=== PATIENT | female | born 1940 | race Caucasian/White ===

== ENCOUNTER 2016-12-04 06:40 | Inpatient (IN) | payer MEDICARE, OTHER ==
--- NOTE | 2016-11-28 16:35 | HP ---
PREOPERATIVE HISTORY AND PHYSICAL: DATE OF OFFICE VISIT: 11/28/16 DATE OF SURGERY: 12/04/16. ATTENDING SURGEON: Oral Redman MD. (DICTATED BY NORMA COLEY) PROCEDURE: Right total knee replacement. CHIEF COMPLAINT: Right knee pain. HISTORY OF PRESENT ILLNESS: Ms. Nickerson is a 76-year-old female who presents to the clinic with ongoing right knee pain for several months. She does have a history of a left total knee arthroplasty which is doing well. She states that her right knee pain has been limiting her function. She is able to walk less than 1 block. She has failed conservative measures to include anti- inflammatories and injections and therefore, has agreed to undergo a right total knee replacement with Dr. Redman on 12/04/16. PAST MEDICAL HISTORY: 1. Rheumatoid arthritis. 2. Low back pain. 3. Heart disease with presence of a pacemaker. 4. Prolapsed bladder. 5. Hypertension. Patient denies prior history of heart attack. PAST SURGICAL HISTORY: 1. Left knee arthroscopy. 2. Left total knee replacement. 3. Umbilical hernia repair. 4. Prolapsed bladder surgery. 5. Pacemaker placement 11/08/14. Patient denies prior complication with anesthesia. MEDICATIONS: 1. Voltaren 1% apply 4g to the left shoulder twice a day as needed. 2. Methotrexate 2.5 mg to take 6 tablets by mouth once a week. 3. Diclofenac 75 mg 1 by mouth twice a day as needed. 4. Simponi 50 mg/0.5 mL injection 50 mg under the skin every month. 5. Folic acid 1 mg take 1 tablet daily. 6. Multivitamin 1 by mouth daily. 7. Vitamin D 500 mg 1 by mouth daily. 8. Ibuprofen 200 mg as needed. 9. Zinc 50 mg every day. 10. Stool softener 100 mg 1 by mouth once a day. 11. Amlodipine besylate 5 mg 1 by mouth every day in the morning. 12. Losartan potassium 25 mg 1 tablet daily. ALLERGIES: No known drug allergies. FAMILY HISTORY: Positive for cancer. Denies family history or personal history of DVT or PE. SOCIAL HISTORY: Patient is retired, she lives alone. She denies tobacco use. She reports occasional alcohol consumption. She denies illegal drug use. REVIEW OF SYSTEMS: General: Negative for fevers, chills, night sweats. No known anesthesia problems. HEENT: Negative for headache, lightheadedness or syncopal episodes. Integumentary: Negative for abrasions, lesions, or open wounds. Cardiothoracic: Negative for chest pain, palpitations or edema. Positive for hypertension. Positive for presence of a pacemaker. Pulmonary: Negative for shortness of breath with exertion, chronic cough, or COPD. GI: Negative for nausea, vomiting, diarrhea, constipation, or GERD. : Negative for nocturia, urinary frequency, urinary urgency, history of UTIs, or kidney problems. Musculoskeletal: Positive for the current complaint. Neuro: Negative for numbness and tingling, history of seizure, stroke, epilepsy. Endocrine: Negative for diabetes or thyroid issues. Hematology: Negative for easy bruising, history of bleeding disorder or history of DVT or PE. Infectious Disease: Negative for history of MRSA, hep C or HIV. PHYSICAL EXAMINATION GENERAL: A 76-year-old well-developed, well-nourished female in no acute distress. Alert and oriented x3 with appropriate mood and affect. VITAL SIGNS: Height 60.25, weight 145, pulse 70, blood pressure 164/70, temperature 97.3, BMI 28.1. HEENT: Normocephalic, atraumatic. PERRLA. NECK: Supple. Throat clear. PULMONARY: Lungs clear to auscultation bilaterally. No wheezing, rhonchi or rales. CARDIO: Regular rate and rhythm, S1 and S2. No murmurs, gallops or rubs. No edema. No carotid bruits. ABDOMEN: Positive bowel sounds, soft, nontender. NEUROLOGIC: Alert and oriented x3. Cranial nerves are grossly intact. Sensation is intact to light touch. MUSCULOSKELETAL: Right lower extremity: Antalgic gait favoring the right side. Neutral right knee alignment. Extension to 0 degrees, flexion 105, no effusion. Stable MCL and LCL. Tender over the medial and lateral joint line. Calf itself is nontender. No swelling of the legs, ankles, or feet bilaterally. +2 posterior tibialis and dorsalis pedis pulses. Sensation intact to light distally. DIAGNOSTIC STUDIES: Multi-view x-rays of the right knee reveal severe arthritic changes in the lateral compartment with [id number] sclerosis and osteophyte formation. IMPRESSION: Severe osteoarthritis of the right knee. PLAN: Patient is a scheduled to undergo a right total knee replacement with Dr. Redman on 12/04/16. She has been cleared by her primary care physician and her corporate tax manager. She is currently holding her Simponi and we will hold her methotrexate 2 weeks before and after the surgery. The patient is holding her vitamin C one week prior to surgery per her PCP. She will also hold her diclofenac one week prior to surgery. She will return to the office 1 month postop for followup and x-rays. Percocet was e-prescribed to the patient's pharmacy for postop pain management. She was instructed to begin an over-the- counter stool softener for opiate-induced constipation prevention and she will take aspirin 325 mg daily for DVT prophylaxis postoperatively. NORMA COLEY [id number]/CPS #: [id number] MTDD
[~2016-12-04 06:40] MED LIST: Buffered Lidocaine 0.9% SYRIN* 5 ML/SYR SYRINGE INTRADERM ONE; Buffered Lidocaine 0.9% SYRIN* 5 ML/SYR SYRINGE ONE; Famotidine IV* 10 MG/ML 2 ML (20 mg) IV ONE; Famotidine IV* 10 MG/ML 2 ML (20 mg) ONE; Metoclopramide TAB* 10 MG ONE; Metoclopramide TAB* 10 MG PO ONE; ceFAZolin 2 GM PREMIX(*) 2 GM/50 ML BAG IVPB ONE
[2016-12-04] MEDS ORDERED: Bupivacaine 0.5% SDV PF* 30 ML VIAL ONE (07:09)
[2016-12-04] MEDS ORDERED: Propofol* 10 MG/ML 20 ML BTL IV PUSH ONE (07:09)
[2016-12-04] MEDS ORDERED: Ketorolac INJ* 30 MG/ML 1 ML VIAL ONE (07:09)
[2016-12-04] MEDS ORDERED: Bupivacaine 0.5% W/EPI SDV* 10 ML VIAL INJ ONE (07:09)
[2016-12-04] MEDS ORDERED: Ondansetron INJ* 2 MG/ML VIAL ONE (07:09)
[2016-12-04] MEDS ORDERED: Propofol* 500 MG/50 ML BTL ONE (07:09)
[2016-12-04] MEDS ORDERED: Lidocaine 2% PF * 5 ML VIAL ONE (07:09)
[2016-12-04] MEDS ORDERED: Dexamethasone IV* 4 MG/ML 1 ML (4 MG) ONE (07:09)
[2016-12-04] MEDS ORDERED: KETAMINE HCL* 50 MG/ML 10 ML VIAL ONE (07:10)
[2016-12-04] MEDS ORDERED: fentaNYL* 50 MCG/ML 2 ML VIAL (100 MCG VIAL) ONE ×2 (07:10→11:03)
[2016-12-04] MEDS ORDERED: Midazolam* 1 MG/ML 5 ML VIAL (5 MG) ONE (07:10)
[2016-12-04] MEDS ORDERED: Morphine PF AMP (0.5MG/ML)* 5 MG/10 ML AMP ONE (07:10)
[2016-12-04] MEDS ORDERED: EPHEDrine (Pressors)* 50 MG/ML VIAL ONE (08:00)
[2016-12-04] MEDS ORDERED: Phenylephrine INJ* 10 MG/ML 1 ML VIAL (10 MG) ONE (08:12)
[2016-12-04] MEDS ORDERED: fentaNYL* 50 MCG/ML 2 ML VIAL (100 MCG VIAL) IV PRN (09:02)
[2016-12-04] MEDS ORDERED: DiMENhydriNATE IV* 50 MG/ML VIAL IV PUSH PRN (09:02)
[2016-12-04] MEDS ORDERED: Ondansetron INJ* 2 MG/ML VIAL IV PRN ×3 (09:02→10:25)
[2016-12-04] MEDS ORDERED: oxyCODONE/Acetamin 5/325 MG* TAB PO PRN ×3 (09:04→10:25)
[2016-12-04] MEDS ORDERED: diPHENhydraMINE IV* 50 MG/ML 1 ml VIAL (BENADRYL) IV PRN ×2 (09:04→10:25)
[2016-12-04] MEDS ORDERED: EPHEDrine (Pressors)* 50 MG/ML VIAL IV PUSH PRN (09:04)
[2016-12-04] MEDS ORDERED: Lactated Ringers 500 ml BAG* 500 ML IV PRN (09:04)
[2016-12-04] MEDS ORDERED: Naloxone* 0.4 MG/ML 1 ML VIAL IV PRN (09:09)
[2016-12-04] MEDS ORDERED: Ropivacaine* 300 MG in NS 0.9% 250 ML* 240 ML EPIDURAL SCH (10:00)
[2016-12-04] MEDS ORDERED: Ondansetron TAB* 4 MG PO PRN (10:25)
[2016-12-04] MEDS ORDERED: Acetaminophen TAB* 325 MG PO PRN (10:25)
--- NOTE | 2016-12-04 11:15 | RAD ---
Indication: Immediate postop exam following RIGHT total knee replacement. Comparison: October 03, 2016 Technique: Portable AP and cross table lateral views RIGHT knee. Report: Status post total knee replacement. Anterior cutaneous queenie and surgical drain in place. Post-op fluid and gas is seen in the joint space and anterior subcutaneous tissues. Alignment is anatomic. No periprosthetic fracture evident. IMPRESSION: Unremarkable immediate postoperative appearance following RIGHT knee replacement.
--- NOTE | 2016-12-04 13:18 | OP ---
CC: Dr. Johnson, [place]reg[place]Torrey manriquez OPERATIVE REPORT: DATE OF OPERATION: 12/04/16 DATE OF : 40 SURGICAL CARE: Right knee. SURGEON: Oral Redman MD ASSISTANTS: 1. Oriana Syed, budget assistant. 2. aimee Landers tech. ANESTHESIOLOGIST: Dr. Sam Myles. ANESTHESIA: Spinal, Duramorph, epidural, IV sedation. PRE-OP DIAGNOSIS: Severe arthritis of the right knee. POST-OP DIAGNOSIS: Severe arthritis of the right knee. OPERATIVE PROCEDURE: Right total knee replacement. COMPONENTS UTILIZED: Valerie Persona knee size 6 femur, D tibia, a 32 patella, and a 10 articular moseley rface. A small extension was placed on the tibial component. COMPLICATIONS: There were no complications. DRAINS: Two blood collection drains, right knee at the end of the case. BLOOD LOSS: 150 mL. REPLACEMENT: Crystalloid fluids. OPERATIVE INDICATIONS: Severe knee arthritis that has been no longer responsive to nonoperative car e. The patient had a left total knee replacement in 2003. DESCRIPTION OF PROCEDURE: The patient was brought to the operating room and placed on the operating table in a supine position following the administration of the anesthetic in the sitting position, she was returned to the supine position and a Hampton catheter was inserted. The right leg was noted to have a 2+ dorsalis pedis pulse and the right proximal thigh was wrapped with a tourniquet. The r ight leg was then given a preliminary chlorhexidine prep and then a final ChloraPrep and draping and sealing off was completed. We did our universal protocol time-out confirming Augusta Nickerson and [facility] [facility] for right total knee replacement. We all agreed and we proceeded. Surgical care was done wi thout tourniquet except for the cleanup and cementing phase of the case. The knee was kept in acute flexion with right foot on a padded foot piece for most of the surgical care. The skin incision we nt from two fingerbreadths proximal to the superior pole of the patella to the medial aspect of the tibial tubercle. Careful hemostasis was checked and achieved throughout the case utilizing electroc autery. The skin and subcu were divided down to the prepatellar bursa and then a careful medial par apatellar arthrotomy was completed, dividing the soft tissues on the tibia down to the bone just med ial to the tibial tubercle going up to the joint line and then the medial aspect of the patella and dividing the quad tendon at the junction of the rectus femoris and the vastus medialis tendon going 3 to 4 cm proximal to superior pole of the patella, staying as close to the vastus medialis muscle a s possible. The knee had very slightly cloudy synovial fluid and there is also clear synovial fluid . The knee had some synovitis. There was complete eburnation of bone, lateral femoral condyle, lat eral tibial plateau with osteophytes, osteophytes on the medial tibial plateau, osteophytes intercon dylar and patella. The anteromedial soft tissues on the tibia were elevated subperiosteally going a round the deep MCL and then in the posteromedial corner of the knee. The patella was everted. Para patellar synovectomy was completed. The ACL and PCL were carefully uplifted from their femoral orig ins after removal of osteophytes on the intercondylar notch, and the tibia was made so that it could be subluxated for from under the femur. Careful lateral meniscectomy was completed taking care to cauterize in the region of the lateral geniculate. The distal anterior femur was exposed subperiost eally for referencing and measuring. The proximal tibial cut was made first. Our goal here was to remove 1 mm or 2 of bone from the lateral side and 5 to 6 mm from the medial side. I wanted the tib ial surface that would have a slight posterior slope and be perpendicular to the long access of the tibia. After this cut was completed and the femoral intramedullary drill was utilized, the femoral canal was suctioned to discourage embolization, and the distal femoral cutting guide was applied on 1 because there was very slight flexion contracture and 6 degrees of valgus. The distal femoral cut s were completed and the extension gap was very satisfactory 10 mm after this cut. The femur was me asured for a size 6 and the 5:1 cuts were completed. We then finished removal of the posterior horn lateral meniscus, the PCL, posterior horn medial meniscus, osteophytes on the posteromedial femoral condyle and at this stage, we had nice ligamentous balance and 90 degrees of flexion with a 10 mm b lock and in full extension with 10 mm block. The femur was completed with intercondylar cutout. Th e tibia was completed for a size D and the femoral canal was then cleaned x6 with pulse saline sucti oned empty and bone plug inserted. The knee was then articulated and extended with D tibia 10 artic ular surface and the 6 femur and we had full knee extension, nice alignment in extension with stable ligaments in extension, and nice ligamentous balance in 90 degrees of flexion. The patella was cut flat. A 32 was chosen. Three drill holes were made and these were undercut. At this stage, the f inal components were checked and opened. The leg was exsanguinated with a David tourniquet. The t ourniquet elevated to 275. The knee was cleaned up entirely in extension with pulse saline irrigati on in all aspects of the gutters posteriorly. The knee was then cleaned in flexion. All bony surfa onel were again cleaned with pulse saline. All surfaces were dried. The cement was mixed. The comp onents were cemented into position, patella followed by tibia, followed by femur. Each was impacted . Excess cement was removed and the knee was articulated and extended during the final hardening. The tourniquet was then deflated. The pericapsular soft tissues were infiltrated with Marcaine 0.5% with epinephrine posteromedially and medially and after we irrigated several times during closure w ith pulse saline. Two drains were brought out through superolateral suprapatellar pouch. The quad mechanism closed with interrupted #1 Polysorbs in [id number] fashion, the same with the medial retinaculum and distally I used 0 Polysorb. The deep bursa, subcu closed with interrupted 0 Polysor b and then 3-0 Polysorb on the more superficial tissues in the superficial subcu and queenie on the skin. The drains were carefully dressed. The surgery was washed with saline and carefully dried an d covered with Betadine soaked release, sterile gauze, sterile Webril, Cryotherapy cuff, ABD pads, a nd then a 6- inch Mark bandage loosely applied. The knee was flexed several times during closure, well past 120 degrees and fully extended and ligam ents were all stable. At the end of the case, the posterior tibial pulse was 2+, and the patient wa s returned to the hospital bed in the recovery room in stable and satisfactory condition having susy rated the procedure very well. [id number]/[facility] #: [id number]
[2016-12-04] MEDS: ceFAZolin VIAL(*) 1 GM in D5W 50 ML BAG* 50 ML IVPB SCH ×2 (16:06→23:29)
[2016-12-04] MEDS: Magnesium Hydroxide LIQ* 30 ML UDC PO PRN (21:02)
[2016-12-04] MEDS: Docusate CAP* 100 MG PO SCH (21:02)
[2016-12-05] MEDS: oxyCODONE/Acetamin 5/325 MG* TAB PO PRN ×3 (03:42→14:49)
[2016-12-05 05:23] LABS: Hematocrit 30 % (35-47)
[2016-12-05 05:49] LABS: BUN/Creatinine Ratio 21.7 (8-20); Blood Urea Nitrogen 13 mg/dL (6-24); CO2 Carbon Dioxide 22 mmol/L (22-32); Calcium 8.6 mg/dL (8.6-10.3); Chloride 102 mmol/L (101-111); EGFR Non-African American 97.2 (>60); Glucose 104 mg/dL (70-100); Sodium 129 mmol/L (133-145)
[2016-12-05 05:51] LABS: Anion Gap 5 mmol/L (2-11)
[2016-12-05] MEDS: oxyCODONE TAB* 5 MG TAB PO PRN ×4 (06:02→22:33)
[2016-12-05] MEDS ORDERED: KCL 20 MEQ/100 ML IVPREMIX* 20 MEQ/100 ML BAG IV ONE (07:41)
[2016-12-05] MEDS: ceFAZolin VIAL(*) 1 GM in D5W 50 ML BAG* 50 ML IVPB SCH (07:50)
[2016-12-05] MEDS ORDERED: Potassium Chlor TAB* 20 MEQ TAB.ER PO ONE (08:00)
[2016-12-05] MEDS: Aspirin TAB* 325 MG PO SCH (08:54)
[2016-12-05] MEDS: Docusate CAP* 100 MG PO SCH ×2 (08:54→20:18)
[2016-12-05] MEDS: amLODIPine TAB* 5 MG PO SCH (08:54)
[2016-12-05] MEDS: Losartan TAB* 25 MG PO SCH (08:54)
[2016-12-05] MEDS: Potassium Chlor TAB* 20 MEQ TAB.ER PO SCH ×2 (12:07→17:47)
--- NOTE | 2016-12-05 13:50 | CONS ---
CC: Dr. Johnson; Ms. Alejandro Casey; Dr. Quinn; Dr. Redman. * CONSULTATION REPORT: DATE OF CONSULT: 12/04/16. PRIMARY CARE PROVIDER: Dr. Johnson. REQUESTING PHYSICIAN: The consultation was requested by Dr. Redman in regards to patient's co-management of her chronic medical problems as well as current postoperative development of hyponatremia and hypokalemia. CHIEF COMPLAINT: Right knee pain. HISTORY OF PRESENT ILLNESS: Augusta Nickerson is a 76-year-old female with history of rheumatoid arthritis with history of remote left knee replacement surgery, and on 12/04/16 she underwent right knee replacement surgery by Dr. Redman. Postoperatively, she had been doing very well. It was noted incidentally that her sodium postoperatively was 129 and potassium of 2.7. She had been getting intravenous fluids with lactated Ringers postop. The patient herself feels well. She is awaiting physical therapy now and eating breakfast comfortably with minimal postoperative pain. She is planning to go to stay with her son in [place], under the care of her granddaughter after her discharge. PAST MEDICAL HISTORY: 1. Rheumatoid arthritis under the care of Dr. Casey. 2. History of symptomatic 2:1 heart block status post pacemaker placement in 2014 under the care of Dr. Quinn. 3. Hypertension. 4. History of bladder prolapse. 5. History of left knee replacement surgery in remote past. 6. History of right knee replacement surgery yesterday. 7. History of hysterectomy. 8. History of hernia repair. MEDICATIONS AT HOME: Include: 1. Voltaren 1% topical to the left shoulder twice a day as needed. 2. Methotrexate 2.5 mg, the patient takes 6 tablets once a week on . 3. Diclofenac 75 mg twice a day as needed. 4. Simponi, the patient uses subcutaneous injections every month, but she had missed for the past couple of months. 5. Folic acid 1 mg daily. 6. Multivitamin 1 tablet daily. 7. Vitamin D 500 mg daily. 8. Ibuprofen on a p.r.n. basis. 9. Zinc 50 mg every day. 10. Stool softener on a p.r.n. basis. 11. Amlodipine 5 mg daily. 12. Losartan 25 mg daily. ALLERGIES: No known drug allergies. FAMILY HISTORY: Positive for breast cancer in sister and mother and prostate cancer in father. SOCIAL HISTORY: The patient is retired, lives alone. There is no history of alcohol, tobacco, or drug use. Once again, she is going to stay with her son in [place] postoperatively. Her surrogate is her son, Joesph Nickerson from [place]. REVIEW OF SYSTEMS: Please see history of present illness. The patient had stated that her rheumatoid arthritis symptoms have been rather well controlled with the current medications apart from the right knee problems that she just had operated on. There is no history of recent chest pain or shortness of breath. Her exercise tolerance is fair. The patient currently has a Hampton catheter in place, which will be discontinued shortly. All the remaining 14 systems were reviewed with the patient and were otherwise negative. PHYSICAL EXAM: Blood pressure of 134/48, heart rate of 57 and regular, respiratory rate 17, oxygen saturation 96% on room air, temperature 97.7. General: The patient is a very pleasant 76-year-old female, who is in no acute distress. Alert, awake, and oriented x3. HEENT: Head atraumatic, normocephalic. Eyes: Pupils equal and reactive to light and accommodation. Oropharynx clear. Mucosa moist. Neck: Supple. No JVD. No bruits bilaterally. Cardiovascular: Regular rate and rhythm with 2/6 systolic ejection murmur on auscultation of the right upper sternal border. Respiratory : Clear to auscultation bilaterally. Abdomen: Soft and nontender. Bowel sounds present in all 4 quadrats. Extremities: There is no edema. Pulses are +2 bilaterally. There is no clubbing or cyanosis. The right postoperative knee is wrapped in postop bandages and the postoperative dressing was not removed for evaluation today. Neuro evaluation: Speech clear. Cranial nerves II through XII grossly intact. Motor strength is 5/5 bilaterally. LABORATORY DATA: Shows sodium of 129, potassium of 2.7, chloride 102, carbon dioxide 22, BUN 13, creatinine 0.6. The patient's hemoglobin was 10.0, hematocrit of 30. The patient's intake total was over 6000 mL in the past 24 hours and output 3800 with balance of 2900 mL positive. ASSESSMENT AND PLAN: 1. A 76-year-old female status post right knee replacement surgery, now with hyponatremia and hypokalemia. It appears to be purely dilutional in postoperative period. The patient has received over 6 L of IV fluids and she is almost 3 L positive. At this point, the patient is found to be Hep-Lock'd when she is eating breakfast, which is right now. Dr. Redman already scheduled patient for potassium replacement 3 times a day of 20 mEq p.o. In addition to that, I will order 1 dose of 20 mEq of potassium chloride IV. 2. In regards to her rheumatoid arthritis, patient's methotrexate and Simponi is on hold while patient is in postoperative state. Patient is ordered postoperative opiate pain medications, oxycodone with acetaminophen on a p.r.n. basis. 3. In regards to patient's hypertension, which is well controlled, amlodipine and losartan can be continued. 4. For DVT prophylaxis, as per patient's primary service, patient is currently on aspirin only. I will defer the patient to Dr. Redman for further DVT prophylaxis management. 5. Patient's anemia with hemoglobin of 10 is new postoperative and at least partially dilutional. That will be followed with a CBC in the morning. 6. Patient's code status is full and her surrogate is her son, Joesph. TIME SPENT: Approximately 62 minutes was spent on consultation of this patient , more than half the time was spent [id number] with patient doing the interview and physical exam. Thank you very much for allowing me to see your patient in consultation. We will see the patient on a daily basis. [id number]/CPS #: [id number] MTDD
[2016-12-05] MEDS: Morphine INJ* 2 MG/ML 1 ML SYRINGE IV PRN ×2 (21:04→23:38)
[2016-12-06] MEDS: oxyCODONE TAB* 5 MG TAB PO PRN ×4 (03:40→22:03)
[2016-12-06 05:50] LABS: Hematocrit 31 % (35-47); Hemoglobin 10.4 g/dl (12.0-16.0)
[2016-12-06] MEDS: oxyCODONE/Acetamin 5/325 MG* TAB PO PRN ×3 (08:03→18:36)
[2016-12-06] MEDS ORDERED: Potassium Chlor TAB* 10 MEQ TAB.ER PO SCH (09:00)
[2016-12-06 09:10] LABS: BUN/Creatinine Ratio 25.5 (8-20); Calcium 8.5 mg/dL (8.6-10.3); EGFR African American 150.8 (>60); EGFR Non-African American 117.2 (>60); Potassium 4.2 mmol/L (3.5-5.0)
[2016-12-06] MEDS: Losartan TAB* 25 MG PO SCH (09:30)
[2016-12-06] MEDS: Aspirin TAB* 325 MG PO SCH (09:30)
[2016-12-06] MEDS: amLODIPine TAB* 5 MG PO SCH (09:30)
[2016-12-06] MEDS: Docusate CAP* 100 MG PO SCH ×2 (09:30→22:03)
[2016-12-06] MEDS: Magnesium Hydroxide LIQ* 30 ML UDC PO PRN (09:34)
--- NOTE | 2016-12-06 09:47 | PN ---
Subjective Date of Service: 12/06/16 Interval History: Pt feels well. Post op was not well controlled last night, today feels better. Objective Active Medications: Acetaminophen (Tylenol Tab*) 650 mg PO Q4H PRN PRN Reason: PAIN OR TEMPERATURE Amlodipine Besylate (Norvasc Tab*) 5 mg PO QAM [facility] Last Admin: 12/06/16 09:30 Dose: 5 mg Aspirin (Aspirin Tab*) 325 mg PO DAILY [facility] Last Admin: 12/06/16 09:30 Dose: 325 mg Diphenhydramine HCl (Benadryl Iv*) 12.5 mg IV Q6H PRN PRN Reason: PRURITIS Docusate Sodium (Colace Cap*) 100 mg PO BID [facility] Last Admin: 12/06/16 09:30 Dose: 100 mg Losartan Potassium (Cozaar Tab*) 25 mg PO QAM [facility] Last Admin: 12/06/16 09:30 Dose: 25 mg Magnesium Hydroxide (Milk Of Magnesia Liq*) 30 ml PO Q6H PRN PRN Reason: constipation Last Admin: 12/06/16 09:34 Dose: 30 ml Morphine Sulfate (Morphine Inj (Syringe)*) 2 mg IV Q2H PRN PRN Reason: PAIN Last Admin: 12/05/16 23:38 Dose: 2 mg Ondansetron HCl (Zofran Inj*) 4 mg IV Q6H PRN PRN Reason: nausea Last Admin: 12/05/16 21:04 Dose: 4 mg Ondansetron HCl (Zofran Tab*) 4 mg PO Q6H PRN PRN Reason: NAUSEA Oxycodone HCl (Roxycodone Tab*) 10 mg PO Q4H PRN PRN Reason: SEVERE PAIN Last Admin: 12/06/16 09:30 Dose: 10 mg Oxycodone/Acetaminophen (Percocet 5/325 Tab*) 1 tab PO Q3H PRN PRN Reason: PAIN - MODERATE Oxycodone/Acetaminophen (Percocet 5/325 Tab*) 2 tab PO Q3H PRN PRN Reason: PAIN - MODERATE Last Admin: 12/06/16 08:03 Dose: 2 tab Potassium Chloride (Klor Con Er Tab*) 10 meq PO TID [facility] Last Admin: 12/06/16 09:30 Dose: 10 meq Vital Signs 12/05/16 12/05/1617 09:49 11:22 11:27 Temperature 97.5 F Pulse Rate 61 Respiratory 18 16 16 Rate Blood Pressure 127/46 (mmHg) O2 Sat by Pulse 97 Oximetry 12/05/16 12/05/16 12/05/16 11:28 13:27 14:49 Temperature Pulse Rate Respiratory 16 18 18 Rate Blood Pressure (mmHg) O2 Sat by Pulse Oximetry 12/05/16 12/05/16 12/05/16 15:50 15:54 16:00 Temperature 98.1 F Pulse Rate 63 Respiratory 18 Rate Blood Pressure 115/45 (mmHg) O2 Sat by Pulse 96 96 Oximetry 12/05/16 12/05/16 12/05/16 16:49 17:47 19:15 Temperature 98.5 F Pulse Rate 61 Respiratory 18 18 16 Rate Blood Pressure 136/46 (mmHg) O2 Sat by Pulse 94 Oximetry 12/05/16 12/05/16 12/05/16 19:20 19:23 19:47 Temperature Pulse Rate Respiratory 16 16 16 Rate Blood Pressure (mmHg) O2 Sat by Pulse Oximetry 12/05/16 12/05/16 12/05/16 21:04 22:04 22:33 Temperature Pulse Rate Respiratory 20 20 20 Rate Blood Pressure (mmHg) O2 Sat by Pulse Oximetry 12/05/16 12/05/16 12/06/16 23:33 23:38 00:33 Temperature 99.6 F Pulse Rate 74 Respiratory 16 16 16 Rate Blood Pressure 158/58 (mmHg) O2 Sat by Pulse 95 Oximetry 12/06/16 12/06/16 12/06/16 00:37 00:40 03:39 Temperature 99.6 F Pulse Rate 73 Respiratory 16 18 Rate Blood Pressure 152/57 (mmHg) O2 Sat by Pulse 95 97 Oximetry 12/06/16 12/06/16 12/06/16 03:40 05:40 08:00 Temperature Pulse Rate Respiratory 16 16 20 Rate Blood Pressure (mmHg) O2 Sat by Pulse 94 Oximetry 12/06/16 12/06/16 12/06/16 08:03 08:05 09:30 Temperature 97.6 F Pulse Rate 72 Respiratory 18 20 18 Rate Blood Pressure 156/61 (mmHg) O2 Sat by Pulse 94 Oximetry Oxygen Devices in Use Now: None Appearance: 76 yo F in nAd, AAOx3 Eyes: No Scleral Icterus, PERRLA Ears/Nose/Mouth/Throat: NL Teeth, Lips, Gums, Mucous Membranes Moist Neck: NL Appearance and Movements; NL JVP, Trachea Midline Respiratory: Symmetrical Chest Expansion and Respiratory Effort, Clear to Auscultation Cardiovascular: NL Sounds; No Murmurs; No JVD, RRR Abdominal: NL Sounds; No Tenderness; No Distention Lymphatic: No Cervical Adenopathy Extremities: No Clubbing, Cyanosis, - - trace r leg edema, r knee post op dressing not removed Skin: No Nodules or Sclerosis Neurological: Alert and Oriented x 3, NL Muscle Strength and Tone Result Diagrams: 12/06/16 05:35 12/06/16 05:35 Microbiology and Other Data: Microbiology 12/05/16 07:58 Urine Culture - Final Urine No Growth (<1,000 CFU/mL) Assess/Plan/Problems-Billing Assessment: 76 yo F with h/o RA and HTN s/p R TKR on 12/04/16 - Patient Problems (1) Knee joint replacement status Comment: s/p surgery on 12/04/16 doing well Possible d/c home tomorrow (2) Hyponatremia Comment: Na still worsening today. IVF stopped on 12/05/16 Multifactorial: dilution/pain/narcotics. Monitor, off IVF Repeat BMP in AM (3) Hypokalemia Comment: resolved (4) Hypertension Comment: controlled, cont Norvasc and Losartan (5) Rheumatoid arthritis Comment: Stable Patient on MTX to resume after discharge (6) DVT prophylaxis Comment: heparin sc (7) Postoperative anemia due to acute blood loss Comment: Hb stable, at an acceptable range Status and Disposition: medicine consult, will follow daily
--- NOTE | 2016-12-06 09:55 | PN ---
Progress Note - Progress Note Date of Service: 12/06/16 SOAP: Subjective: []Patient seen walking from BR to chair upon entering room this morning. She states she did not sleep well last night due to knee pain and feels tired this am. She denies SOB, CP or dizziness. She feels her pain is a little better this am. She hopes to go home to her son's house tomorrow. Objective: [] Laboratory Results - last 24 hr 12/06/16 12/06/16 05:35 05:35 Hgb 10.4 L Hct 31 L Sodium 124 L Potassium 4.2 Chloride 93 L Carbon Dioxide 26 Anion Gap 5 BUN 13 Creatinine 0.51 Est GFR ( Amer) 150.8 Est GFR (Non-Af Amer) 117.2 BUN/Creatinine Ratio 25.5 H Glucose 110 H Calcium 8.5 L Vital Signs Temp 97.6 F 12/06/16 08:05 Pulse 72 12/06/16 08:05 Resp 18 12/06/16 09:30 BP 156/61 12/06/16 08:05 Pulse Ox 94 12/06/16 08:05 Intake & Output 12/05/16 12/06/16 12/06/16 18:59 06:59 18:59 Intake Total 2147 1040 330 Output Total 1250 1900 200 Balance 897 -860 130 Intake: IV Fluids 1187 LR 1167 NS (0.9%) 20 Medicated IV 165 Cerfazolin 55 potassium 110 Oral 795 1040 330 Output: Urine 900 1900 200 [place] 350 Right knee dressings changed, soapy water wash done, betadine soaked telfa, 4x4s and ABD w LATOYA re applied Wound healing well, no erythema or active drainage calf non tender and soft + DF/PF right ankle Assessment: []s/p Right total knee arthroplasty POD #2 hypokalemia- resolved hyponatremia- active, per Dr. Haley, continue to monitor labs for natural resolution Plan: []PT/OT WBAT ASA for DVT prophylaxis Discharge home tomorrow
[2016-12-06] MEDS: Heparin VIAL(*) 5000 UNITS/ML VIAL (FIVE THOUSAND) SUBCUT SCH (23:47)
[2016-12-07] MEDS: oxyCODONE/Acetamin 5/325 MG* TAB PO PRN ×3 (02:46→12:34)
[2016-12-07 09:09] LABS: Hematocrit 33 % (35-47)
[2016-12-07 09:11] LABS: Comments Flag Yes
[2016-12-07 09:29] LABS: BUN/Creatinine Ratio 21.2 (8-20); Calcium 8.8 mg/dL (8.6-10.3); EGFR African American 147.4 (>60); EGFR Non-African American 114.6 (>60); Potassium 3.9 mmol/L (3.5-5.0)
[2016-12-07] MEDS: Aspirin TAB* 325 MG PO SCH (09:38)
[2016-12-07] MEDS: amLODIPine TAB* 5 MG PO SCH (09:38)
[2016-12-07] MEDS: Losartan TAB* 25 MG PO SCH (09:38)
[2016-12-07] MEDS: Docusate CAP* 100 MG PO SCH (09:39)
--- NOTE | 2016-12-07 10:04 | PN ---
Progress Note - Progress Note Date of Service: 12/07/16 SOAP: Subjective: []Patient seen OOB in chair, feeling better today, less tired and pain even better in the right knee. She looks forward to going home today. Objective: [] Vital Signs Temp 99.1 F 12/07/16 07:44 Pulse 78 12/07/16 07:44 Resp 16 12/07/16 08:18 BP 160/54 12/07/16 07:44 Pulse Ox 100 12/07/16 08:18 Intake & Output 12/06/16 12/07/16 12/07/16 18:59 06:59 18:59 Intake Total 690 620 300 Output Total 850 1500 300 Balance -160 -880 0 Intake: Oral 690 620 300 Output: Urine 850 1500 300 Laboratory Results - last 24 hr 12/06/16 12/07/16 12/07/16 23:21 09:01 09:01 Hgb 11.0 L Hct 33 L APTT 28.5 Sodium 127 L Potassium 3.9 Chloride 94 L Carbon Dioxide 28 Anion Gap 5 BUN 11 Creatinine 0.52 Est GFR ( Amer) 147.4 Est GFR (Non-Af Amer) 114.6 BUN/Creatinine Ratio 21.2 H Glucose 113 H Calcium 8.8 Right knee incision healing without evidence of drainage or infection calf non tender and soft + DF/PF right ankle sensation intact anti biotic ointment, telfa, 4x4s and LATOYA wrap applied to right knee Assessment: []s/p right total knee arthroplasty POD #3 Plan: []Discharge to son's house today ASA 325 mg po daily Percocet for pain Colace while on narcotics follow up in 4-[address] Redman
--- NOTE | 2016-12-07 10:20 | PN ---
Subjective Date of Service: 12/07/16 Interval History: Pt feels well. Ready to go home Objective Active Medications: Acetaminophen (Tylenol Tab*) 650 mg PO Q4H PRN PRN Reason: PAIN OR TEMPERATURE Amlodipine Besylate (Norvasc Tab*) 5 mg PO QAM [facility] Last Admin: 12/07/16 09:38 Dose: 5 mg Aspirin (Aspirin Tab*) 325 mg PO DAILY [facility] Last Admin: 12/07/16 09:38 Dose: 325 mg Diphenhydramine HCl (Benadryl Iv*) 12.5 mg IV Q6H PRN PRN Reason: PRURITIS Docusate Sodium (Colace Cap*) 100 mg PO BID [facility] Last Admin: 12/07/16 09:39 Dose: 100 mg Heparin Sodium (Porcine) (Heparin Vial(*)) 5,000 units SUBCUT Q12HR [facility] Last Admin: 12/06/16 23:47 Dose: 5,000 units Losartan Potassium (Cozaar Tab*) 25 mg PO QAM [facility] Last Admin: 12/07/16 09:38 Dose: 25 mg Magnesium Hydroxide (Milk Of Magnesia Liq*) 30 ml PO Q6H PRN PRN Reason: constipation Last Admin: 12/06/16 09:34 Dose: 30 ml Morphine Sulfate (Morphine Inj (Syringe)*) 2 mg IV Q2H PRN PRN Reason: PAIN Last Admin: 12/05/16 23:38 Dose: 2 mg Ondansetron HCl (Zofran Inj*) 4 mg IV Q6H PRN PRN Reason: nausea Last Admin: 12/05/16 21:04 Dose: 4 mg Ondansetron HCl (Zofran Tab*) 4 mg PO Q6H PRN PRN Reason: NAUSEA Oxycodone HCl (Roxycodone Tab*) 10 mg PO Q4H PRN PRN Reason: SEVERE PAIN Last Admin: 12/06/16 22:03 Dose: 10 mg Oxycodone/Acetaminophen (Percocet 5/325 Tab*) 1 tab PO Q3H PRN PRN Reason: PAIN - MODERATE Oxycodone/Acetaminophen (Percocet 5/325 Tab*) 2 tab PO Q3H PRN PRN Reason: PAIN - MODERATE Last Admin: 12/07/16 08:11 Dose: 2 tab Vital Signs 12/06/16 12/06/16 12/06/16 11:10 11:20 11:26 Temperature 97.9 F Pulse Rate 68 Respiratory 18 18 18 Rate Blood Pressure 140/47 (mmHg) O2 Sat by Pulse 99 Oximetry 12/06/16 12/06/16 12/06/16 13:26 13:29 15:25 Temperature 98.3 F Pulse Rate 74 Respiratory 18 18 Rate Blood Pressure 125/56 (mmHg) O2 Sat by Pulse 99 Oximetry 12/06/16 12/06/16 12/06/16 15:29 15:43 15:55 Temperature Pulse Rate Respiratory 18 16 Rate Blood Pressure (mmHg) O2 Sat by Pulse 99 Oximetry 12/06/16 12/06/16 12/06/16 18:36 19:29 19:30 Temperature 98.1 F Pulse Rate 76 Respiratory 18 16 16 Rate Blood Pressure 116/55 (mmHg) O2 Sat by Pulse 96 Oximetry 12/06/16 12/06/16 12/06/16 20:36 22:03 23:38 Temperature Pulse Rate 71 Respiratory 16 16 14 Rate Blood Pressure 129/46 (mmHg) O2 Sat by Pulse 95 Oximetry 12/07/16 12/07/16 12/07/16 00:00 02:46 03:26 Temperature 98.2 F Pulse Rate 73 Respiratory 16 16 16 Rate Blood Pressure 150/51 (mmHg) O2 Sat by Pulse 98 Oximetry 12/07/16 12/07/16 12/07/16 05:26 07:44 08:11 Temperature 99.1 F Pulse Rate 78 Respiratory 16 18 16 Rate Blood Pressure 160/54 (mmHg) O2 Sat by Pulse 100 Oximetry 12/07/16 08:18 Temperature Pulse Rate Respiratory 16 Rate Blood Pressure (mmHg) O2 Sat by Pulse 100 Oximetry Oxygen Devices in Use Now: None Appearance: 76 yo F in nAD, aAOx3 Eyes: No Scleral Icterus, PERRLA Ears/Nose/Mouth/Throat: NL Teeth, Lips, Gums, Mucous Membranes Moist Neck: NL Appearance and Movements; NL JVP, Trachea Midline Respiratory: Symmetrical Chest Expansion and Respiratory Effort, Clear to Auscultation Cardiovascular: NL Sounds; No Murmurs; No JVD, RRR Abdominal: NL Sounds; No Tenderness; No Distention Lymphatic: No Cervical Adenopathy Extremities: No Edema, No Clubbing, Cyanosis Skin: No Nodules or Sclerosis, - - R post op knee wrapped in LATOYA bandage Neurological: Alert and Oriented x 3, NL Muscle Strength and Tone Result Diagrams: 12/07/16 09:01 12/07/16 09:01 Microbiology and Other Data: Microbiology 12/05/16 07:58 Urine Culture - Final Urine No Growth (<1,000 CFU/mL) Assess/Plan/Problems-Billing Assessment: 76 yo F with h/o RA and HTN s/p R TKR on 12/04/16 - Patient Problems (1) Knee joint replacement status Comment: s/p surgery on 12/04/16 doing well Possible d/c home today (2) Hyponatremia Comment: Na improved IVF stopped on 12/05/16 Multifactorial: dilution/pain/narcotics. (3) Hypokalemia Comment: resolved (4) Hypertension Comment: controlled, cont Norvasc and Losartan (5) Rheumatoid arthritis Comment: Stable Patient on MTX to resume after discharge (6) DVT prophylaxis Comment: heparin sc (7) Postoperative anemia due to acute blood loss Comment: Hb stable, at an acceptable range Status and Disposition: medicine consult, will sign off. Please call if needed
[2016-12-07 12:12] VITALS: BP 140/52
[2016-12-07] MEDS: Heparin VIAL(*) 5000 UNITS/ML VIAL (FIVE THOUSAND) SUBCUT SCH (12:16)
--- NOTE | 2016-12-08 08:49 | DS ---
DISCHARGE SUMMARY: DATE OF ADMISSION: 12/04/16 DATE OF DISCHARGE: 12/07/16 ATTENDING PHYSICIAN: Dr. Oral Redman.* (DICTATED BY NORMA GRANADOS) ADMISSION DIAGNOSIS: Severe degenerative arthritis, right knee. DISCHARGE DIAGNOSES: 1. Severe degenerative arthritis, right knee. 2. Postoperative hypokalemia. 3. Postoperative hyponatremia. SURGERY PERFORMED: Right total knee arthroplasty. HOSPITAL COURSE: The patient is a 76-year-old female who has had severe right knee arthritis over the last year. She failed conservative management with antiinflammatories and cortisone injections. She underwent a previous left total knee arthroplasty in 2003, did very well with that and elected to proceed with right total knee arthroplasty. The patient was taken to the operating room on the date of 12/04/16 for the aforementioned procedure under the care of Dr. Oral Redman. She tolerated the procedure well and left the operating room in stable condition. Postoperatively she was found to have low sodium and low potassium levels. The patient was evaluated by Medicine, Dr. Haley who ordered a dose of IV potassium which corrected her hypokalemia. Dr. Haley felt that the sodium levels were low due to volume overload from IV fluids and this would correct over the next week naturally. The patient was asymptomatic with her electrolyte imbalance during her postoperative period. She did very well with her physical therapy and occupational therapy exercises and progressed quickly. She had no other postoperative complications as her hemoglobin and hematocrit also remained stable throughout her hospital stay. It was felt that she was both medically and orthopedically stable for discharge to home on the date of . CONDITION ON DISCHARGE: The patient's temperature 99.1, pulse 78, respiratory rate 18, O2 sat 100% on room air, and blood pressure 160/54. Her laboratory studies show a hemoglobin of 11.0 and a hematocrit of 33. Her potassium is in the normal rage of 3.9. Her sodium is improving, but is still slightly low at 127, up from 124 yesterday. Her right knee incision is healing without evidence of infection. There is no drainage, no erythema. Her swelling is moderate. Her calf is soft and nontender. She has active dorsiflexion and plantarflexion of the ankle. Her sensation is intact. Neosporin and gauze with Mark dressing applied to the right knee today. PLAN: She will be discharged to her son's home where she has her own living area. She will have home health services/physical therapy. We recommend staple removal in roughly 10 to 12 days. She may shower. Continue to bear weight as tolerated and work on her strengthening exercises and range of motion. Dr. Redman would like to see her in followup in roughly 4 to 6 weeks or as needed with any problems prior to her scheduled appointment. She will continue with aspirin 325 mg p.o. daily as well as Colace while on Percocet for pain management. The patient is understanding. NORMA GRANADOS [id number]/[facility] #: [id number] RICH
== END 2016-12-07 13:00 | disposition home health service (06) | DRG 470 ==
LOC: AA 06:40 → SSU 12:52
PROVIDERS: ADMIT Orthopaedic Surgery; ATTEND Orthopaedic Surgery
PROC: 0SRC0J9 Replacement of Right Knee Joint with Synthetic Substitute, Cemented, Open Approach (ICD-10-PCS; 2016-12-04)
PROC: 30233H0 Transfusion of Autologous Whole Blood into Peripheral Vein, Percutaneous Approach (ICD-10-PCS; principal; 2016-12-04 07:30)
DX: M17.11 Unilateral primary osteoarthritis, right knee (principal); E87.70 Fluid overload, unspecified; M06.9 Rheumatoid arthritis, unspecified; E87.1 Hypo-osmolality and hyponatremia; N39.0 Urinary tract infection, site not specified; D62 Acute posthemorrhagic anemia; I10 Essential (primary) hypertension; Z96.652 Presence of left artificial knee joint; M25.761 Osteophyte, right knee; E87.6 Hypokalemia; M48.06 Spinal stenosis, lumbar region; M21.061 Valgus deformity, not elsewhere classified, right knee; M65.9 Synovitis and tenosynovitis, unspecified; Z95.0 Presence of cardiac pacemaker; Z80.9 Family history of malignant neoplasm, unspecified; Z87.440 Personal history of urinary (tract) infections; Z79.82 Long term (current) use of aspirin; Z90.710 Acquired absence of both cervix and uterus; Z80.3 Family history of malignant neoplasm of breast; Z80.42 Family history of malignant neoplasm of prostate
CPT/HCPCS: 36415; 62323; 80048; 85014; 85018; 85730; 87086; 88305; 88311; A9270-GY; C1776; J0690; J1100; J1200; J1644; J1885; J2250; J2270; J2405; J2704; J2795; J3010; J3480